=== PATIENT | female | born 1995 | race Caucasian/White ===

== ENCOUNTER 2019-05-15 04:05 | Observation (INO) ==
[2019-05-15] MEDS ORDERED: Isovue-370 500 ML BOTTLE IVP ONE (04:19)
[2019-05-15] MEDS ORDERED: 0.9 % Sodium Chloride 1,000 ML IVC ONE ×2 (04:21→05:16)
[2019-05-15 05:02] LABS: Basophils % 0.1 %; Eosinophils % 0.1 %; Hematocrit 38.7 % (35.3-44.9); Hemoglobin 13.9 g/dL (11.5-15.4); Immature Granulocytes % 0.6 % (0-4); Lymphocytes # 2.4 K/mcL (0.6-4.6); Lymphocytes % 15.5 %; Mean Corpuscular HGB Conc 35.9 g/dL (31.6-35.5); Mean Corpuscular Hemoglobin 30.4 pg (28.0-33.3); Mean Corpuscular Volume 84.7 fL (83.0-100.0); Mean Platelet Volume 10.6 fL (9.4-12.4); Monocytes % 6.6 %; Neutrophils # 11.9 K/mcL (1.6-8.9); Platelet Count 249 K/mcL (140-400); Red Blood Count 4.57 M/mcL (3.82-4.97); Red Cell Distribution Width 12.2 % (11.5-14.5); Segmented Neutrophils % 77.1 %; White Blood Count 15.4 K/mcL (4.3-11.1)
[2019-05-15] MEDS ORDERED: Piperacillin/Tazobactam 3.375 GM in 0.9 % Sodium Chloride Mini Bag 100 ML IVPB ONE (05:02)
[2019-05-15 05:07] LABS: INR 1.1
[2019-05-15 05:09] LABS: Activated Partial Thrombo Time 25.6 Seconds (26.0-36.0)
[2019-05-15 05:26] LABS: BUN/Creatinine Ratio 10 (6-26); Blood Urea Nitrogen 7 mg/dL (6-20); C-Reactive Protein 195 mg/L (Less than 10); Calcium 9.3 mg/dL (8.6-10.3); Carbon Dioxide 27 mEq/L (23-29); Chloride 97 mEq/L (98-107); Glucose 93 mg/dL (70-105); Osmolality,Calculated 280 (280-300); Sodium 136 mEq/L (136-145); eGFR For African Americans > 60 (> 60); eGFR For Non-African Americans > 60 (> 60)
[2019-05-15] MEDS ORDERED: Potassium Chloride 40 MEQ, Lidocaine 1% 2 ML in 0.9 % Sodium Chloride 500 ML IVPB ONE (05:33)
[2019-05-15] MEDS ORDERED: *HR* FentaNYL (PF) 100 MCG/2 ML VIAL IVP STA (07:17)
[2019-05-15] MEDS ORDERED: Acetaminophen 325 MG TABLET PO PRN ×2 (08:19→19:00)
[2019-05-15] MEDS ORDERED: Naloxone 0.4 MG/ML INJ IVP PRN ×2 (08:19→19:00)
[2019-05-15] MEDS ORDERED: Ibuprofen 400 MG TABLET PO PRN ×2 (08:19→19:00)
[2019-05-15 08:50] LABS: Bilirubin,Urine Negative (Negative); Blood,Urine Negative (Negative); Clarity,Urine Clear (Clear); Color,Urine Dark Yellow (Yellow); Glucose,Urine (UA) Normal (Normal); Ketones,Urine Negative (Negative); Leukocyte Esterase,Urine Negative (Negative); Nitrite,Urine Negative (Negative); PH,Urine 7.5 pH Units (5.0-8.0); Protein,Urine 30 mg/dL (Neg-Trace)
[2019-05-15 08:52] LABS: Bacteria,Urine Moderate per hpf (None-Few); Squamous Epithelial Cell,Urine Many per lpf (None-Few)
[2019-05-15 08:53] LABS: Specific Gravity,Urine >= 1.099 (1.010-1.025)
[2019-05-15 09:03] LABS: RBC,Urine 0-3 per hpf (0-3)
[2019-05-15 09:08] LABS: Amphetamine Screen,Urine Negative ng/mL (Cutoff=1000); Barbiturate Screen,Urine Negative ng/mL (Cutoff=200); Benzodiazepines Screen,Urine Negative ng/mL (Cutoff=200); Cannabinoid Screen,Urine Positive ng/mL (Cutoff = 50); Cocaine Screen,Urine Negative ng/mL (Cutoff= 300); Opiate Screen,Urine Negative ng/mL (Cutoff=300); Phencyclidine Screen,Urine Negative ng/mL (Cutoff=25)
[2019-05-15] MEDS ORDERED: Ketorolac 30 MG/ML VIAL IVP PRN ×2 (09:26→19:00)
[2019-05-15] MEDS ORDERED: Ringers Solution, Lactated 1,000 ML IVC SCH ×2 (10:00→19:00)
[2019-05-15] MEDS: Ampicillin/Sulbactam 3,000 MG in 0.9 % Sodium Chloride Mini Bag 100 ML IVPB SCH ×3 (12:00→23:56)
[2019-05-15] MEDS ORDERED: Lidocaine -MPF 2% 2 ML VIAL ONE (17:22)
[2019-05-15] MEDS ORDERED: *HR* Midazolam HCl 2 MG/2 ML VIAL ONE (17:22)
[2019-05-15] MEDS ORDERED: *HR* Propofol 200 MG/20 ML VIAL IVP ONE (17:22)
[2019-05-15] MEDS ORDERED: *HR* FentaNYL (PF) 100 MCG/2 ML VIAL ONE (17:22)
[2019-05-15] MEDS ORDERED: Bupivacaine/EPI 1:200k 0.5%PF 10 ML VIAL ONE (17:25)
[2019-05-15] MEDS ORDERED: *HR* Heparin 5,000 UNIT/ML VIAL SQ SCH (18:00)
[2019-05-15] MEDS ORDERED: Dexamethasone 4 MG/ML VIAL ONE (18:01)
[2019-05-15] MEDS ORDERED: Ondansetron 4 MG/2 ML VIAL ONE (18:01)
[2019-05-15] MEDS ORDERED: *HR* Promethazine 25 MG/ML VIAL IVP PRN (18:34)
[2019-05-15] MEDS ORDERED: *HR* OxyCODONE Immed Rel 5 MG TABLET PO PRN (18:34)
[2019-05-15] MEDS ORDERED: Ondansetron 4 MG/2 ML VIAL IVP ONE (18:34)
[2019-05-15] MEDS ORDERED: *HR* HYDROmorphone (PF) 1 MG/ML SYRINGE IVP PRN (18:34)
[2019-05-16] MEDS: Ampicillin/Sulbactam 3,000 MG in 0.9 % Sodium Chloride Mini Bag 100 ML IVPB SCH (05:41)
[2019-05-16] MEDS ORDERED: *HR* Heparin 5,000 UNIT/ML VIAL SQ SCH (06:00)
[2019-05-16 06:54] VITALS: BP 107/72
== END 2019-05-16 08:09 | disposition left against medical advice (07) ==
LOC: EMEROOARM 04:05 → 2ANU 04:05
PROVIDERS: ADMIT Internal Medicine; ATTEND Internal Medicine